=== PATIENT | male | born 1960 | race Caucasian/White ===

== ENCOUNTER → 2016-12-30 08:26 | Outpatient (CLI) | payer MEDICAID ==
[2014-02-13 08:49] VITALS: BMI 26.2
[~2016-12-30 08:26] MED LIST: COZAAR25 MG PO; EFFIENT10 MG PO; NORCO 5/325 TAB1 TA1 PO; PRINIVIL20 MG PO
[2016-12-31 08:22] LABS: IMMUNOGLOBULIN A 238 mg/dL (90-386); IMMUNOGLOBULIN G 1151 mg/dL (700-1600)
== END | disposition home or self-care (01) ==
LOC: D.RAD 08:26
PROVIDERS: Internal Medicine Pulmonary Disease
DX: J44.9 Chronic obstructive pulmonary disease, unspecified (principal)

== ENCOUNTER 2017-05-14 20:53 | Emergency (ER) | payer MEDICAID ==
[2014-02-13 08:49] VITALS: BMI 26.2
[2017-05-14 22:06] LABS: APPEARANCE HAZY (CLEAR); BILIRUBIN NEGATIVE (NEGATIVE); COLOR YELLOW (YELLOW); GLUCOSE NEGATIVE (NEGATIVE); KETONE NEGATIVE (NEGATIVE); LEUKOCYTE ESTERASE NEGATIVE (NEGATIVE); NITRITE NEGATIVE (NEGATIVE); PROTEIN NEGATIVE (NEGATIVE); SPECIFIC GRAVITY 1.015 (1.005-1.020); UROBILINOGEN NORMAL (NORMAL)
[2017-05-14 22:12] LABS: BACTERIA FEW /hpf (NONE SEEN); EPITHELIAL CELLS 0-5 /hpf (0-5); HYALINE CAST 0-5 /lpf (NONE SEEN); MUCUS <1+ /lpf (NONE SEEN); RED CELLS - URINE 0-5 /hpf (0-5)
[2017-05-14 22:13] LABS: WAXY CAST RARE /lpf (NONE SEEN)
[2017-05-14 22:44] LABS: BASOPHILS 0.2 % (0-2); EOSINOPHILS 1.6 % (0-7); HEMATOCRIT 41.7 % (42.0-54.0); HEMOGLOBIN 14.1 g/dL (13.5-17.5); IMMATURE GRANULOCYTES 0.3 % (0-5); LYMPHOCYTES 21.5 % (15-50); MCH 31.2 pg (26.0-34.0); MCHC 33.8 g/dL (31.0-37.0); MCV 92.3 fL (80.0-100.0); MONOCYTES 8.6 % (2-11); NEUTROPHILS 67.8 % (40-80); PLATELET COUNT 214 10x3/uL (130-400); RBC 4.52 10x6/uL (4.20-6.10); RDW 13.5 % (11.5-14.5); WBC 8.8 10x3/uL (4.8-10.8)
[2017-05-14 23:00] LABS: ALBUMIN 3.7 g/dL (3.4-5.0); ANION GAP 14.9 mmol/L (8-16); BILIRUBIN - TOTAL 0.36 mg/dL (0.2-1.3); CREATININE - SERUM 1.9 mg/dL (0.6-1.3); POTASSIUM - SERUM 4.9 mmol/L (3.5-5.1)
== END 2017-05-15 01:42 | disposition home or self-care (01) ==
LOC: D.ER 20:53
PROVIDERS: Emergency Medicine
DX: R10.9 Unspecified abdominal pain (principal); J44.9 Chronic obstructive pulmonary disease, unspecified; I10 Essential (primary) hypertension

== ENCOUNTER → 2018-02-03 10:49 | Outpatient (CLI) | payer MEDICAID ==
[2014-02-13 08:49] VITALS: BMI 26.2
== END | disposition home or self-care (01) ==
LOC: D.CT 10:49
DX: I71.4 Abdominal aortic aneurysm, without rupture (principal)

== ENCOUNTER → 2018-03-08 13:01 | Outpatient (CLI) | payer MEDICAID ==
[2014-02-13 08:49] VITALS: BMI 26.2
== END | disposition home or self-care (01) ==
LOC: D.CT 13:01
DX: I71.4 Abdominal aortic aneurysm, without rupture (principal); M79.605 Pain in left leg; M79.604 Pain in right leg

== ENCOUNTER → 2018-03-23 13:26 | Outpatient (CLI) | payer MEDICAID ==
[2014-02-13 08:49] VITALS: BMI 26.2
[2018-03-23 15:20] LABS: CREATININE - SERUM 1.2 mg/dL (0.6-1.3)
== END | disposition home or self-care (01) ==
LOC: D.LAB 13:00 → D.RT 14:00
PROVIDERS: Internal Medicine Pulmonary Disease
DX: J44.9 Chronic obstructive pulmonary disease, unspecified (principal)

== ENCOUNTER → 2019-07-23 13:22 | Outpatient (CLI) | payer OTHER, MEDICAID ==
[2014-02-13 08:49] VITALS: BMI 26.2
== END | disposition home or self-care (01) ==
LOC: D.LABREF 13:22
PROVIDERS: ATTEND Orthopaedic Surgery
DX: M16.12 Unilateral primary osteoarthritis, left hip (principal); Z11.8 Encounter for screening for other infectious and parasitic diseases

== ENCOUNTER 2019-07-29 06:29 | Emergency (ER) | payer OTHER, MEDICAID ==
[~2019-07-29] VITALS: Ht 180.3 cm; Wt 73.6 kg
[2019-07-29 06:35] VITALS: BP 124/76; Ht 180.3 cm; Wt 73.6 kg
== END 2019-07-29 07:18 | disposition home or self-care (01) ==
LOC: D.ER 06:29
DX: K43.2 Incisional hernia without obstruction or gangrene (principal)